=== PATIENT | female | born 1940 | race Caucasian/White ===

== ENCOUNTER → 2023-10-27 08:08 | Outpatient (REF) | payer MEDICARE, OTHER, SELFPAY | LOC: HWRAD 08:08 | PROVIDERS: ATTENDING PHYSICIAN Internal Medicine Hematology & Oncology; FAMILY PHYSICIAN Emergency Medicine | DX: C50.912 Malignant neoplasm of unspecified site of left female breast (principal); C50.911 Malignant neoplasm of unspecified site of right female breast; M81.0 Age-related osteoporosis without current pathological fracture | CPT/HCPCS: 77080 ==

== ENCOUNTER → 2023-12-15 12:44 | Outpatient (REF) | payer MEDICARE, OTHER, SELFPAY | LOC: RAD 12:44 | PROVIDERS: ATTENDING PHYSICIAN Emergency Medicine | DX: J06.9 Acute upper respiratory infection, unspecified (principal) | CPT/HCPCS: 71046 ==

== ENCOUNTER 2024-08-14 00:03 | Emergency (ER) | payer MEDICARE, OTHER, SELFPAY ==
[2024-08-14 00:33] VITALS: BP 154/102
[2024-08-14 01:55] VITALS: BP 157/84
[2024-08-14 01:56] VITALS: BMI 28.3
[2024-08-14 03:00] VITALS: BP 123/77
[2024-08-14 04:00] VITALS: BP 140/83
--- NOTE | 2024-08-14 04:58 | ED.GENMED ---
History of Present Illness
General
Chief Complaint: Dental Problem
Source: patient
Exam Limitations: none
Time Seen by Provider: 08/14/24 03:32
Nursing documentation reviewed up to this point in time: agreed with
History of Present Illness
History of Present Illness:
This is an 84-year-old woman with history of breast cancer status post bilateral mastectomy, maintained on letrozole for the past 2 years. She also has history of osteoporosis, maintained on Reclast every 6 months.
She admits to neglecting dental care for many years and she presents to the ED tonight after left lower molar inadvertently 'fell out' and she has had some bleeding from her gum. She denies pain. Denies swelling, denies fever, denies sore throat.
She takes no anticoagulants.
Past History
Past History
ED Past Medical History: Cancer (Breast cancer), Hypothyroidism and Other (Hyperparathyroidism; osteoporosis)
ED Past Surgical History: Gynecological (Bilateral mastectomy) and Orthopedic
Social History
Tobacco: Non-smoker
Alcohol: None
Drug: None
Personal:
Living: alone
Employment: Employed
Family History
Family History: Other (Noncontributory)
Phy Exam
Physical Exam
Physical Exam:
GENERAL: 84-year-old woman appears younger than stated age, bright and alert, pleasant, appears in no acute distress.
EYE: pupils equal and reactive. anicteric
NECK: Supple, nontender, no meningismus, no significant adenopathy.
ENT: posterior pharynx is clear, oral mucosa is moist. There is a chronic appearing avulsion of the left lower posterior molar as well as a partial avulsion of the left lower first molar with scant oozing of blood from the gingiva surrounding this
first lower molar on the left. No focal tenderness. No gingival edema. No facial swelling nor tenderness. TM clear b/l, nares patent.
CARDIAC: Regular rate and rhythm. no murmur.
LUNGS: Clear breath sounds bilaterally, no acute respiratory distress, no wheezes/rales/rhonchi
ABDOMEN: Soft, nondistended, without focal tenderness
NEUROLOGICAL: Alert and oriented x3, no focal neuro deficits. Gait is campa and steady.
SKIN: Warm and dry, normal color, skin intact. No rash.
MUSCULOSKELETAL: No C/C/E. peripheral pulses are full and equal b/l. No palpable tenderness.
PSYCH: Normal and appropriate interaction.
Course
Orders/Labs/Results
Orders:
Orders
08/14/24 04:58
Amoxicillin [Amoxil] 500 mg PO NOW STA
Vital Signs
Initial and Last Documented VS:
Initial Vital Signs
Temp Pulse Resp BP Pulse Ox
97.7 F 82 20 154/102 96
08/14/24 00:33 08/14/24 00:33 08/14/24 00:33 08/14/24 00:33 08/14/24 00:33
Last Documented Vital Signs
Temp Pulse Resp BP Pulse Ox
97.7 F 82 20 132/75 96
08/14/24 00:33 08/14/24 00:33 08/14/24 00:33 08/14/24 05:00 08/14/24 00:33
MDM/Problems Addressed
Differential Diagnosis Includes:
Patient presents with partially avulsed molar with local bleeding from gingiva.
Admits to neglecting dental care for quite some time.
Gelfoam and local pressure have been applied to avulsed dental area with complete resolution of bleeding. Area now is dry and remains nontender.
Due to acute avulsion, concern for focal dental caries will place on a course of amoxicillin.
As patient maintained on Reclast there is certainly some concern for osteonecrosis of the mandible. Again reassuring that she has no pain.
Recommend prompt follow-up with dentist for further evaluation.
Recommend she limit her diet to soft foods. May take Tylenol as needed for discomfort.
Return precautions discussed.
Chronic conditions affecting care: Cancer and Other (Osteoporosis, maintained on Reclast.)
*Pulse Oximetry
Patient hypoxic: no
*Critical Care Note
Total Time (30-74mins, 75-104mins- exclusive of procedures): Not Applicable
ED Attending Note
-
Portions of this chart may have been created with voice recognition software.� Occasional wrong word or��sound alike� substitutions may have occurred due to the inherent limitations of voice recognition software.
Discharge Plan
Departure
Patient Disposition: Home (Routine Discharge)
Date of Disposition: 08/14/24
Time of Disposition: 05:04
Patient with high blood pressure during this ER visit?: Yes
Condition: Good
Discharge Problem:
Dental carry with dental avulsion
Instructions: Tooth Decay, Adult (DC), Fractured Tooth (DC), BLOOD PRESSURE
Prescriptions:
New
amoxicillin 875 mg tablet
875 mg PO BID Qty: 14 0RF
No Action
multivitamin Tablet
1 tab PO DAILY
diphenhydramine-acetaminophen [Tylenol PM Extra Strength] 25-500 mg Tablet
2 tab PO HS
Referrals:
Rohini Duke MD [Family Provider, Internal Medicine] - Call in 1-3 days for appt
Interventions
Interventions:
*Risk Screen - Suicide Last Done: 08/14/24 00:33
*General Assessment Last Done: 08/14/24 01:56
*Neglect/Abuse Screening Last Done: 08/14/24 01:56
*ED- Fall Risk Assessment Last Done: 08/14/24 01:56
*ED COVID-19 Vaccine History Last Done: 08/14/24 01:56
*Nursing Disposition Last Done: 08/14/24 05:25
Discharge Date and Time
Discharge Date/Time: 08/14/24 05:27
Print Language: ISRAELI
[2024-08-14 05:00] VITALS: BP 132/75
[2024-08-14] MEDS: AMOXIL 500 MG PO (05:23)
== END 2024-08-14 05:27 | disposition home or self-care (01) ==
LOC: EMR 00:03
PROVIDERS: EMERGENCY PHYSICIAN Emergency Medicine; FAMILY PHYSICIAN Emergency Medicine
DX: K02.9 Dental caries, unspecified (principal); K08.89 Other specified disorders of teeth and supporting structures; E03.9 Hypothyroidism, unspecified; Z85.3 Personal history of malignant neoplasm of breast; Z90.13 Acquired absence of bilateral breasts and nipples; M81.0 Age-related osteoporosis without current pathological fracture; Z79.899 Other long term (current) drug therapy
CPT/HCPCS: 99283

== ENCOUNTER → 2024-12-15 11:08 | Outpatient (REF) | payer MEDICARE, OTHER, SELFPAY | LOC: RAD 11:08 | PROVIDERS: FAMILY PHYSICIAN Emergency Medicine | DX: Z85.3 Personal history of malignant neoplasm of breast (principal) | CPT/HCPCS: 71260; Q9967 ==

== ENCOUNTER → 2024-12-17 07:49 | Outpatient (REF) | payer MEDICARE, OTHER, SELFPAY | LOC: RAD 07:49 | DX: R55 Syncope and collapse (principal) | CPT/HCPCS: 93880 ==

== ENCOUNTER → 2025-01-24 07:55 | Outpatient (REF) | payer MEDICARE, OTHER, SELFPAY | LOC: HWRAD 07:55 | PROVIDERS: FAMILY PHYSICIAN Emergency Medicine | DX: R26.81 Unsteadiness on feet (principal) | CPT/HCPCS: 70450 ==